=== PATIENT | male | born 1985 | race Caucasian/White ===

== ENCOUNTER 2017-11-05 22:33 | Emergency (ER) | payer SELFPAY ==
[~2017-11-05] VITALS: Ht 188 cm; Wt 88.3 kg
[2017-11-05 23:21] LABS: APPEARANCE CLEAR ((CLEAR)); BILIRUBIN NEGATIVE; BLOOD NEGATIVE; COLOR YELLOW ((YELLOW)); GLUCOSE (STRIP) NEGATIVE; KETONES NEGATIVE; LEUKOCYTES NEGATIVE; NITRITE NEGATIVE; PROTEIN (STRIP) NEGATIVE; SPECIFIC GRAVITY 1.026 (1.000-1.030); UCUL ADDED? NO
[2017-11-05 23:40] LABS: HEMATOCRIT 44.1 % (38.0-50.0); HEMOGLOBIN 15.5 G/DL (12.5-16.6); MCH 32.8 PG (29.0-34.0); MCHC 35.1 G/DL (30.0-36.0); MCV 93.4 FL (86-99); PLATELET COUNT 250 K/uL (156-360); RBC DIS.WIDTH-SD 41.6 % (39-53); RED BLOOD COUNT 4.72 M/uL (4.00-5.50); WHITE BLOOD COUNT 12.6 K/uL (4.1-10.2)
[2017-11-05 23:48] LABS: ALBUMIN 4.6 g/dL (3.2-4.8)
[2017-11-05 23:49] LABS: CHLORIDE 107 mEq/L (99-109); SODIUM 142 mEq/L (136-147)
[2017-11-05 23:51] LABS: GLUCOSE 139 mg/dL (70-99); TOTAL PROTEIN 7.3 g/dL (6.4-8.3)
[2017-11-05 23:53] LABS: TOTAL BILIRUBIN 0.8 mg/dL (0.0-1.0)
[2017-11-05 23:54] LABS: ALKALINE PHOSPHATASE 64 IU/L (3-129)
[2017-11-05 23:55] LABS: CREATININE 0.9 mg/dL (0.6-1.3); GFR ESTIMATE (CALCULATED) > 59 mL/min/ (58.99-99999)
[2017-11-05 23:56] LABS: AST (GOT) 18 IU/L (2-34); UREA NITROGEN (BUN) 11 mg/dL (9-23)
[2017-11-05 23:58] LABS: ALT (GPT) 13 IU/L (3-49)
[2017-11-06] MEDS ORDERED: ZOFRAN4 MG PO (00:37)
[2017-11-06] MEDS ORDERED: BENTYL20 MG PO (00:37)
[2017-11-06 01:00] VITALS: BP 124/77
== END 2017-11-06 01:03 | disposition home or self-care (01) ==
LOC: EME 22:33
PROVIDERS: Nurse Practitioner Family
DX: R10.30 Lower abdominal pain, unspecified (principal); R11.2 Nausea with vomiting, unspecified; F17.200 Nicotine dependence, unspecified, uncomplicated
CPT/HCPCS: 74018; 80053; 81003; 85027; 99281; 99285; J1885